=== PATIENT | male | born 1965 | race African-American/Black ===

== ENCOUNTER 2017-11-21 16:23 | Emergency (ER) | payer MEDICAID ==
[~2017-11-21] VITALS: Ht 182.9 cm; Wt 61.0 kg
[2017-11-21 16:25] VITALS: BP 120/76
[2017-11-21] MEDS ORDERED: FLUORESCEIN/BENOXINATE 5 ML DROPS OP ONE (17:00)
== END 2017-11-21 18:02 ==
LOC: ED 17:56
DX: H10.022 Other mucopurulent conjunctivitis, left eye (principal); B34.9 Viral infection, unspecified
CPT/HCPCS: 71046; 99284

== ENCOUNTER 2019-07-08 19:37 | Emergency (ER) | payer MEDICAID ==
[~2019-07-08] VITALS: Ht 185.4 cm; Wt 75.0 kg
[2019-07-08 20:58] VITALS: BP 124/74
== END 2019-07-08 20:59 | disposition home or self-care (01) ==
LOC: ED 20:38
DX: J06.9 Acute upper respiratory infection, unspecified (principal)
CPT/HCPCS: 71045; 99283